=== PATIENT | male | born 1980 | race Caucasian/White ===

== ENCOUNTER 2016-10-31 22:21 | Emergency (ER) | payer MEDICAID ==
[~2016-10-31] VITALS: Ht 175.3 cm; Wt 95.3 kg
[2016-10-31] MEDS ORDERED: OXYcodone/APAP 10/325MG TABLET PO ONE (23:00)
[2016-10-31] MEDS ORDERED: ONDANSETRON ODT 4 MG PO ONE (23:00)
[2016-10-31] MEDS ORDERED: DEXAMETHASONE 4 MG TABLET ONE (23:27)
[2016-10-31] MEDS ORDERED: ONDANSETRON ODT 4 MG ONE (23:35)
[2016-10-31] MEDS ORDERED: OXYcodone/APAP 10/325MG TABLET ONE (23:35)
[2016-11-01 00:03] LABS: ASPARTATE AMINO TRANSFERASE 33 U/L (15-37); BLOOD UREA NITROGEN 15 mg/dL (7-18)
[2016-11-01 00:37] VITALS: BP 139/93
== END 2016-11-01 00:41 | disposition home or self-care (01) ==
LOC: ED 11-01 00:35
DX: M10.061 Idiopathic gout, right knee (principal); M13.161 Monoarthritis, not elsewhere classified, right knee
CPT/HCPCS: 36415; 73564; 80053; 84550; 85025; 99285; Q0162

== ENCOUNTER 2016-11-28 13:31 | Emergency (ER) | payer SELFPAY ==
[~2016-11-28] VITALS: Ht 175.3 cm; Wt 95.4 kg
[2016-11-28 13:32] VITALS: BP 132/78
[2016-11-28] MEDS ORDERED: HYDROcodone/APAP 5/325 TABLET ONE (13:54)
[2016-11-28] MEDS ORDERED: HYDROcodone/APAP 5/325 TABLET PO ONE (14:00)
== END 2016-11-28 14:08 | disposition home or self-care (01) ==
LOC: ED 14:00
DX: M25.561 Pain in right knee (principal); M13.10 Monoarthritis, not elsewhere classified, unspecified site
CPT/HCPCS: 99283

== ENCOUNTER 2017-05-08 16:47 | Emergency (ER) | payer MEDICAID ==
[~2017-05-08] VITALS: Ht 175.3 cm; Wt 92.0 kg
[2017-05-08 16:59] VITALS: BP 128/68
[2017-05-08] MEDS ORDERED: INDOMETHACIN 25 MG CAPSULE PO ONE (17:30)
[2017-05-08] MEDS ORDERED: [UNRECOGNIZED DRUG - REMARK] MC SCH (17:30)
[2017-05-08] MEDS ORDERED: HYDROcodone/APAP 5/325 TABLET PO ONE (17:30)
[2017-05-08] MEDS ORDERED: KETOROLAC 30 MG/1 ML IM ONE (17:30)
[2017-05-08] MEDS ORDERED: HYDROcodone/APAP 5/325 TABLET ONE (17:55)
[2017-05-08] MEDS ORDERED: KETOROLAC 30 MG/1 ML ONE (17:55)
== END 2017-05-08 18:18 | disposition home or self-care (01) ==
LOC: ED 18:12
DX: M10.071 Idiopathic gout, right ankle and foot (principal); M10.061 Idiopathic gout, right knee; F17.200 Nicotine dependence, unspecified, uncomplicated
CPT/HCPCS: 96372; 99283; J1885

== ENCOUNTER 2017-05-26 08:11 | Emergency (ER) | payer MEDICAID ==
[~2017-05-26] VITALS: Ht 175.3 cm; Wt 94.8 kg
[2017-05-26] MEDS ORDERED: OXYcodone/APAP 5/325MG TABLET ONE (08:45)
[2017-05-26] MEDS ORDERED: KETOROLAC 30 MG/1 ML ONE (08:45)
[2017-05-26] MEDS ORDERED: OXYcodone/APAP 5/325MG TABLET PO ONE (09:00)
[2017-05-26] MEDS ORDERED: KETOROLAC 30 MG/1 ML IM ONE (09:00)
[2017-05-26 09:02] VITALS: BP 121/74
== END 2017-05-26 09:37 | disposition home or self-care (01) ==
LOC: ED 08:34
DX: M13.171 Monoarthritis, not elsewhere classified, right ankle and foot (principal); M10.9 Gout, unspecified
CPT/HCPCS: 96372; 99283; J1885

== ENCOUNTER 2018-02-27 07:47 | Emergency (ER) | payer SELFPAY ==
[~2018-02-27] VITALS: Ht 175.3 cm; Wt 96.1 kg
[2018-02-27] MEDS ORDERED: KETOROLAC 30 MG/1 ML ONE (08:24)
[2018-02-27 08:25] LABS: BASOPHILS # (AUTO) 0.04 x10^3/uL (0-0.1); BASOPHILS % (AUTO) 1 % (0-1); EOSINOPHILS # (AUTO) 0.05 x10^3/uL (0-0.4); EOSINOPHILS % (AUTO) 1 % (1-7); LYMPHOCYTES # (AUTO) 1.57 x10^3/uL (1-3.4); LYMPHOCYTES % (AUTO) 22 % (22-44); MD NO; MEAN CORPUSCULAR HEMOGLOBIN 30.3 pg (27.5-34.5); MEAN CORPUSCULAR HGB CONC 32.1 g/dL (33.2-36.2); MEAN CORPUSCULAR VOLUME 94.2 fL (81-97); MEAN PLATELET VOLUME 7.8 fL (7.4-10.4); MONOCYTES # (AUTO) 0.33 x10^3/uL (0.2-0.8); MONOCYTES % (AUTO) 5 % (2-9); NEUTROPHILS # (AUTO) 5.19 x10^3/uL (1.8-6.8); NEUTROPHILS % (AUTO) 72 % (42-75); PLATELET COUNT 274 x10^3/uL (130-400); RED BLOOD COUNT 5.08 x10^6/uL (4.38-5.82); RED CELL DISTRIBUTION WIDTH 14.1 % (9.4-14.8)
[2018-02-27] MEDS ORDERED: HYDROcodone/APAP 5/325 TABLET ONE (08:25)
[2018-02-27] MEDS ORDERED: HYDROcodone/APAP 5/325 TABLET PO ONE (08:30)
[2018-02-27] MEDS ORDERED: KETOROLAC 30 MG/1 ML IM ONE (08:30)
[2018-02-27 09:55] VITALS: BP 139/55
== END 2018-02-27 09:57 | disposition home or self-care (01) ==
LOC: ED 09:46
DX: M1A.9XX0 Chronic gout, unspecified, without tophus (tophi) (principal); W22.8XXA Striking against or struck by other objects, initial encounter; Y93.89 Activity, other specified; Y99.8 Other external cause status; Y92.009 Unspecified place in unspecified non-institutional (private) residence as the place of occurrence of the external cause
CPT/HCPCS: 36415; 73630; 84550; 85025; 96372; 99285; J1885

== ENCOUNTER 2018-05-01 08:52 | Emergency (ER) | payer OTHER ==
[~2018-05-01] VITALS: Ht 175.3 cm; Wt 96.4 kg
[2018-05-01 08:59] VITALS: BP 123/80
[2018-05-01] MEDS ORDERED: KETOROLAC 30 MG/1 ML IM ONE (09:30)
[2018-05-01] MEDS ORDERED: KETOROLAC 30 MG/1 ML ONE (09:33)
== END 2018-05-01 09:47 | disposition home or self-care (01) ==
LOC: ED 09:30
DX: M10.061 Idiopathic gout, right knee (principal); M10.071 Idiopathic gout, right ankle and foot
CPT/HCPCS: 99283; J1885

== ENCOUNTER 2019-07-26 00:55 | Emergency (ER) | payer SELFPAY ==
[~2019-07-26] VITALS: Ht 175.3 cm; Wt 101.0 kg
[2019-07-26] MEDS ORDERED: LORazepam 2 MG/ML, 1ML IVPush ONE ×3 (01:00→03:00)
[2019-07-26] MEDS ORDERED: SODIUM CHLORIDE FLUSH 10ML SYR IVF ONE (01:00)
[2019-07-26] MEDS ORDERED: ONDANSETRON 2MG/ML, 2ML IVPush ONE (01:00)
[2019-07-26] MEDS ORDERED: SODIUM CHLORIDE 0.9% 1,000ML IVBOLUS ONE ×2 (01:00)
[2019-07-26] MEDS ORDERED: LORazepam 2 MG/ML, 1ML ONE ×2 (01:20→02:54)
[2019-07-26] MEDS ORDERED: ONDANSETRON 2MG/ML, 2ML ONE (01:20)
[2019-07-26 01:22] LABS: PH, VENOUS 7.363 pH (7.320-7.420)
[2019-07-26 01:23] LABS: BASOPHILS # (AUTO) 0.03 x10^3/uL (0-0.1); BASOPHILS % (AUTO) 0 % (0-1); EOSINOPHILS % (AUTO) 0 % (1-7); LYMPHOCYTES # (AUTO) 0.92 x10^3/uL (1-3.4); LYMPHOCYTES % (AUTO) 7 % (22-44); MD NO; MEAN CORPUSCULAR HEMOGLOBIN 28.1 pg (27.5-34.5); MEAN CORPUSCULAR HGB CONC 33.2 g/dL (33.2-36.2); MEAN CORPUSCULAR VOLUME 84.7 fL (81-97); MONOCYTES # (AUTO) 0.74 x10^3/uL (0.2-0.8); MONOCYTES % (AUTO) 5 % (2-9); NEUTROPHILS # (AUTO) 12.19 x10^3/uL (1.8-6.8); NEUTROPHILS % (AUTO) 88 % (42-75); PLATELET COUNT 181 x10^3/uL (130-400); RED BLOOD COUNT 4.57 x10^6/uL (4.38-5.82); RED CELL DISTRIBUTION WIDTH 16.4 % (9.4-14.8)
--- NOTE | 2019-07-26 01:31 | NUR ---
Assumed care from YANE Calderon Pt alert and resting on gurney. Pt in gown and on all monitors. Pt reports he has only peed once today. Pt reports having increased thirst recently. NS liter running. Pt aware of need for urine sample.
[2019-07-26 01:36] LABS: ACETONE, SERUM Negative (Negative); ALANINE AMINOTRANSFERASE 47 U/L (12-78); ALBUMIN 3.8 g/dL (3.4-5.0); ANION GAP 17 mmol/L (5-15); CALCIUM 8.5 mg/dL (8.5-10.1); CHLORIDE 102 mmol/L (98-107); CREATININE 1.02 mg/dL (0.7-1.3)
[2019-07-26 01:38] LABS: ALKALINE PHOSPHATASE 108 U/L (45-117); BILIRUBIN,TOTAL 1.8 mg/dL (0.2-1.0); CREATINE KINASE, TOTAL 702 U/L (39-308); TOTAL PROTEIN 8.7 g/dL (6.4-8.2)
--- NOTE | 2019-07-26 01:45 | NUR ---
Banana bag request sent to pharmacy.
[2019-07-26] MEDS ORDERED: MAGNESIUM SULFATE 1 GM, THIAMINE 100 MG, FOLIC ACID 1 MG, MVI ADULT 10 ML in SODIUM CHL... IV ONE (02:00)
--- NOTE | 2019-07-26 02:28 | NUR ---
Pt alert and resting on gurney. 2nd liter bolus started. Banana bag started. VS retaken. Urine collected and sent.
[2019-07-26 02:33] LABS: MICROSCOPIC NOT IND
[2019-07-26 02:36] LABS: CULTURE INDICATED? NO
[2019-07-26 02:44] LABS: AMPHETAMINE SCREEN, URINE Positive (Negative); BARBITURATE SCREEN, URINE Negative (Negative); BENZODIAZEPINE SCREEN, URINE Negative (Negative); CANNABINOID SCREEN, URINE Negative (Negative); COCAINE SCREEN, URINE Negative (Negative); METHADONE SCREEN, URINE Negative (Negative); OPIATE SCREEN, URINE Negative (Negative)
--- NOTE | 2019-07-26 02:52 | NUR ---
Verbal order from Dr. Edwards for 2mg ativan received.
[2019-07-26] MEDS ORDERED: KETOROLAC 30 MG/1 ML ONE (02:53)
[2019-07-26] MEDS ORDERED: KETOROLAC 30 MG/1 ML IVPush ONE (03:00)
[2019-07-26] MEDS ORDERED: OMNIPAQUE 350 MG/ML, 100ML BOTTLE ONE (03:05)
--- NOTE | 2019-07-26 03:14 | NUR ---
Pt medicated per AUG. Pt alert and resting on [facility].
--- NOTE | 2019-07-26 03:43 | NUR ---
Pt noted to be 84% RA while sleeping. Pt placed on 2L NC with retrun of sats >92%.
--- NOTE | 2019-07-26 04:35 | NUR ---
Pt noted to be desating again. RN to room. Pt had pulled NC out of nose. Pt easily awakened and NC was replaced. Banana bag continues to run.
--- NOTE | 2019-07-26 05:41 | NUR ---
Pt sleeping on gurney. Pt will not keep NC in nose. Pt 90% RA.
[2019-07-26 06:08] VITALS: BP 101/54
--- NOTE | 2019-07-26 06:19 | NUR ---
Pt awake and oriented. Pt able to stand and walk.
--- NOTE | 2019-07-26 06:35 | NUR ---
Pt provided with bus pass. Pt ambulatory to restroom and back.
--- NOTE | 2019-07-26 06:47 | NUR ---
Pt dressed and sitting on edge of bed. Pt reporting feeling dizzy. Crackers and water provided.
--- NOTE | 2019-07-26 06:53 | NUR ---
Pt d/c'd to self care. Pt alert, oriented and ambulatory. Pt educated on alcohol and drug cessation, home care and follow-up. Pt VU. Pt ambulated out of ER with bus pass and d/c papers.
== END 2019-07-26 07:03 | disposition home or self-care (01) ==
LOC: ED 06:55
DX: F15.10 Other stimulant abuse, uncomplicated (principal); F10.10 Alcohol abuse, uncomplicated; R00.0 Tachycardia, unspecified; R10.84 Generalized abdominal pain; Y90.9 Presence of alcohol in blood, level not specified
CPT/HCPCS: 74177; 80053; 80307; 81003; 82010; 82550; 82803; 82962; 85025; 93005; 96365; 96375; 96376; 99285; J1885; J2060; J2405; J3411; J3475; J7030; Q9967